=== PATIENT | female | born 2000 | race Two or more races ===

== ENCOUNTER 2020-06-20 16:06 | Emergency (ER) | payer MEDICAID ==
[~2020-06-20] VITALS: Ht 170.2 cm; Wt 81.8 kg
[2020-06-20] MEDS ORDERED: IV NORMAL SALINE 1000ML BAG 1,000 ML IV SCH (16:30)
[2020-06-20] MEDS ORDERED: ASPIRIN CHEWABLE 81 MG TABLET. PO ONE (16:30)
--- NOTE | 2020-06-20 16:31 | PHYS DOC ---
General Adult EDM: Chief Complaint: CHEST PAIN HPI: HPI: Patient is a 20 year old female who presents with for the last 3 weeks she has had this left sided chest pain that radiates into the left arm and at times into the back that is intermittent. She states she has been seen for it before but was not diagnosed with anything. She states she also has palpitations. She states that the pain feels like a " squeezing" type feeling that cause her to have some shortness of air when it is happening. She states she could just be sitting there and the pain begins. She states that nothing makes it worse or better. She states that this morning about 6:40 AM she took 3 ibuprofens withou t relief. She states that she is rating her discomfort an 8 out of 10 at this time. Patient denies abdominal pain, nausea, vomiting, diarrhea, dizziness, syncope, headache, vision changes, focal weakness, diarrhea, recent illness, fever, injury or heavy lifting. Pain is not reproducible with movement or palpation. She denies a past medical history. She denies smoking, drug use or alcohol use. Review of Systems: Review of Systems: Constitutional: Denies fever or chills. [] Eyes: Denies change in visual acuity. [] HENT: Denies nasal congestion or sore throat. [] Respiratory: Denies cough or shortness of breath. [] Cardiovascular: + chest pain, + palpitations, denies edema. [] GI: Denies abdominal pain, nausea, vomiting, bloody stools or diarrhea. [] : Denies dysuria. [] Musculoskeletal: +Intermittent radiation of chest pain to back pain. Denies joint pain. + Left arm squeezing pain [] Integument: Denies rash. [] Neurologic: Denies headache, focal weakness or sensory changes. [] Endocrine: Denies polyuria or polydipsia. [] Lymphatic: Denies swollen glands. [] Psychiatric: Denies depression or anxiety. [] Heart Score: HEART Score for Chest Pain: HEART Score for Chest Pain Response (Comments) Value History Slighlty/Non-Suspicious 0 ECG Normal 0 Age < 45 0 Risk Factors No Risk Factors 0 Troponin < Normal Limit 0 Total 0 Risk Factors: Risk Factors: DM, Current or recent (<one month) smoker, HTN, HLP, family history of CAD, obesity. Risk Scores: Score 0 - 3: 2.5% MACE over next 6 weeks - Discharge Home Score 4 - 6: 20.3% MACE over next 6 weeks - Admit for Clinical Observation Score 7 - 10: 72.7% MACE over next 6 weeks - Early Invasive Strategies Physical Exam: PE: Constitutional: Well developed, well nourished, no acute distress, non-toxic appearance. [] HENT: Normocephalic, atraumatic, bilateral external ears normal, oropharynx moist, no oral exudates, nose normal. [] Eyes: PERRLA, EOMI, conjunctiva normal, no discharge. [] Neck: Normal range of motion, no tenderness, supple, no stridor. [] Cardiovascular:Heart rate regular rhythm, no murmur [] Lungs & Thorax: Bilateral breath sounds clear to auscultation [] Abdomen: Bowel sounds normal, soft, no tenderness, no masses, no pulsatile masses. [] Skin: Warm, dry, no erythema, no rash. [] Back: No tenderness, no CVA tenderness. [] Extremities: No tenderness, no cyanosis, no clubbing, ROM intact, no edema. [] Neurologic: Alert and oriented X 3, normal motor function, normal sensory func tion, no focal deficits noted. [] Psychologic: Affect normal, judgement normal, mood normal. Normal physical exam [] EKG: EK and read by Dr. Lentz was normal sinus rhythm and no STEMI. Radiology/Procedures: Radiology/Procedures: [] Impression: [facility] [address] [place], [place] [id number] IMAGING REPORT Signed PATIENT: ROCKY GAUTHIER AACCOUNT: [id number] : 2000 LOCATION: ER AGE: 20 SEX: F EXAM STATUS: REG ER ORD. PHYSICIAN: LILLIAM KEYES APRN REASON: chest pain, palpitations, soa PROCEDURE: PORTABLE CHEST 1V INDICATION: Reason: chest pain, palpitations, soa / Spl. Instructions: / History: COMPARISON: None. FINDINGS: Single view of chest obtained. No focal airspace consolidation. Cardiomediastinal contour unremarkable. No acute osseous abnormality. IMPRESSION: * No focal airspace consolidation or edema. Electronically signed by: Lukasz Angeles MD (06/20/2020 5:59 PM) [id number] DICTATED and SIGNED BY: LUKASZ ANGELES MD DATE: 06/20/20 [id number] 0 Course & Med Decision Making: Course & Med Decision Making Pertinent Labs and Imaging studies reviewed. (See chart for details) See HPI. Alert and oriented x4. Ambulatory with steady gait. Speaks in full complete sentences. Skin pink warm and dry. No extremity edema. No tenderness or pain with palpation over the chest or the abdomen and pelvis. Abdomen is soft. Lungs are clear to auscultation all lobes. Vital signs within normal limits. EKG shows normal sinus rhythm. Well's Score 0. PERC negative. D-dimer normal. Blood work unremarkable. Chest xray normal. Patient is referred to a Manifest Clerk for follow up care. I have discussed this patient and care plan with Dr Lentz. [] Uriel Disclaimer: Uriel Disclaimer: This electronic medical record was generated, in whole or in part, using a voice recognition dictation system. Departure Departure Impression: Primary Impression: Chest pain Qualified Codes: R07.9 - Chest pain, unspecified Additional Impressions: Palpitations Arm pain, left Disposition: 01 DC HOME SELF CARE/HOMELESS Condition: STABLE Referrals: MAR PLATT MD Patient Instructions: Chest Pain (Nonspecific), Palpitations, [id number] Additional Instructions: Follow up with a senior planner I have referred you too. Take Ibuprofen for your pain. If you begin having severe shortness of air return to the ED. Scripts Ibuprofen (IBUPROFEN) 600 Mg Tablet 600 MG PO PRN Q6HRS PRN for INFLAMMATION, #20 TAB Prov: LILLIAM KEYES TOP FORMER 06/20/20 Methylprednisolone (MEDROL) 4 Mg Tab.ds.pk 1 PKG PO UD, #1 PKG Prov: LILLIAM KEYES TOP FORMER 06/20/20 LILLIAM KEYES TOP FORMER Jun 20, 2020 16:31
[2020-06-20 16:58] LABS: PROTHROMBIN TIME PATIENT 13.7 SEC (11.7-14.0)
[2020-06-20 16:59] LABS: CREATININE 0.7 mg/dL (0.6-1.0); GFR 104.6; POTASSIUM 3.5 mmol/L (3.5-5.1)
[2020-06-20 17:01] LABS: D-DIMER < 0.27 ug/mlFEU (0.00-0.50)
--- NOTE | 2020-06-20 17:03 | EKG ---
[facility] [address] [place] [address] Test Date: 2020-06-20 Test Time: 16:19:05 Pat Name: ROCKY GAUTHIER Department: Room: Gender: F [employer] [place]: : 2000 Requested By: LILLIAM KEYES Order Number: [id number] Reading MD: Measurements Intervals [place] Rate: 85 P: 47 TX: 154 QRS: 38 QRSD: 88 T: 58 QT: 348 QTc: 414 Interpretive Statements SINUS RHYTHM NORMAL ECG RI6.02 No previous ECG available for comparison
[2020-06-20 17:05] LABS: ALBUMIN 3.8 g/dL (3.4-5.0); ALBUMIN/GLOBULIN RATIO 0.9 (1.0-1.7); TOTAL BILIRUBIN 0.2 mg/dL (0.2-1.0); TOTAL PROTEIN 7.9 g/dL (6.4-8.2)
[2020-06-20 17:12] LABS: BASO # 0.1 x10^3/uL (0.0-0.2); BASO % 1 % (0-3); EOS # 0.1 x10^3/uL (0.0-0.7); EOS % 2 % (0-3); HEMATOCRIT 37.5 % (36.0-47.0); HEMOGLOBIN 12.4 g/dL (12.0-15.5); LYMPH # 3.1 x10^3/uL (1.0-4.8); LYMPH % 45 % (24-48); MEAN CORPUSCULAR HEMOGLOBIN 27 pg (25-35); MEAN CORPUSCULAR HGB CONC 33 g/dL (31-37); MEAN CORPUSCULAR VOLUME 82 fL (79-100); MONO # 0.5 x10^3/uL (0.0-1.1); MONO % 8 % (0-9); NEUT % 45 % (31-73); PLATELET COUNT 282 x10^3/uL (140-400); RED BLOOD COUNT 4.58 x10^6/uL (3.50-5.40); RED CELL DISTRIBUTION WIDTH 14.5 % (11.5-14.5); WHITE BLOOD COUNT 6.8 x10^3/uL (4.0-11.0)
[2020-06-20 17:14] LABS: BILIRUBIN,URINE NEGATIVE (NEG); CLARITY,URINE CLEAR; COLOR,URINE YELLOW; NITRITE,URINE NEGATIVE (NEG); PH,URINE 6.5 (<5.0-8.0); PROTEIN,URINE NEGATIVE (NEG-TRACE)
[2020-06-20 17:22] LABS: BACTERIA,URINE FEW /HPF (0-FEW)
[2020-06-20 17:23] LABS: BARBITURATES NEG (NEG); BENZODIAZEPINES NEG (NEG); CANNABINOIDS NEG (NEG); COCAINE NEG (NEG); METHADONE NEG (NEG); OPIATES NEG (NEG); PHENCYCLIDINE NEG (NEG)
[2020-06-20 17:28] LABS: AMPHETAMINE/METHAMPHETAMINE NEG (NEG)
--- NOTE | 2020-06-20 18:01 | RAD ---
INDICATION: Reason: chest pain, palpitations, soa / Spl. Instructions: / History: COMPARISON: None. FINDINGS: Single view of chest obtained. No focal airspace consolidation. Cardiomediastinal contour unremarkable. No acute osseous abnormality. IMPRESSION: * No focal airspace consolidation or edema. Electronically signed by: Richard Deutsch MD (06/20/2020 5:59 PM) [id number]
[2020-06-20] MEDS ORDERED: IBUP-1007 PO (18:08)
[2020-06-20] MEDS ORDERED: METH4TAB2 PO (18:08)
[2020-06-20 18:40] VITALS: BP 104/62
== END 2020-06-20 18:45 | disposition home or self-care (01) ==
LOC: ER 16:06
DX: R07.89 Other chest pain (principal); R00.2 Palpitations; M79.602 Pain in left arm
CPT/HCPCS: 36415; 71045; 80053; 80307; 81001; 81025; 83690; 83735; 83880; 84443; 84484; 85025; 85379; 85610; 87086; 93005; 96360; 99285; J7030

== ENCOUNTER 2020-08-27 20:13 | Emergency (ER) | payer MEDICAID ==
[~2020-08-27] VITALS: Ht 170.2 cm; Wt 90.0 kg
[~2020-08-27 20:13] MED LIST: ASPI325T8 PO; CETI10TA74 PO; CHOL5000 PO; CITA20TA9 PO; CLOP75TA PO; IBUP-1007 PO; IBUP-1027 PO; MECL12.582 PO; METH4TAB2 PO; POLY17PO52 PO
[2020-08-27] MEDS ORDERED: IV NORMAL SALINE 1000ML BAG 1,000 ML IV ONE (20:45)
[2020-08-27] MEDS ORDERED: diphenhydrAMINE 50 MG/ML VIAL IVP ONE ×2 (21:00→23:00)
[2020-08-27] MEDS ORDERED: methylPREDNISolone SOD SUCC PF 125 MG/2 ML VIAL. IV ONE (21:00)
[2020-08-27] MEDS ORDERED: FAMOTIDINE 20 MG/2 ML VIAL IVP ONE (21:00)
[2020-08-27] MEDS ORDERED: EPINEPHrine 1 MG/ML VIAL IM ONE (23:00)
--- NOTE | 2020-08-27 23:09 | PHYS DOC ---
Past Medical History Past Medical History: Asthma, CVA, Depression Additional Past Medical Histor: COVID Past Surgical History: No Surgical History Smoking Status: Former Smoker Alcohol Use: None General Adult EDM: Chief Complaint: ALLERGIC REACTION HPI: HPI: Patient is a 20 year old female present to ER due to right upper lip swelling, right hand itchy. Symptoms started a few hours ago while she was at work. Patient had the same problem last month. She had not seen an allergy doctor yet. Patient denies any new medication, not sure what happened. Patient denies any trouble swallowing, denies any tongue swelling, denies any trouble breathing. Patient states she is feels itching all over now. Patient denies any chest pain, no headache, no nausea vomiting. Review of Systems: Review of Systems: Constitutional: Denies fever or chills. [] Eyes: Denies change in visual acuity. [] HENT: Denies nasal congestion or sore throat. Positive upper lip swelling, right upper corner. Respiratory: Denies cough or shortness of breath. [] Cardiovascular: Denies chest pain or edema. [] GI: Denies abdominal pain, nausea, vomiting, bloody stools or diarrhea. [] : Denies dysuria. [] Musculoskeletal: Denies back pain or joint pain. [] Integument: Positive for itching Neurologic: Denies headache, focal weakness or sensory changes. [] Endocrine: Denies polyuria or polydipsia. [] Lymphatic: Denies swollen glands. [] Psychiatric: Denies depression or anxiety. [] Heart Score: C/O Chest Pain: N/A Risk Factors: Risk Factors: DM, Current or recent (<one month) smoker, HTN, HLP, family hi story of CAD, obesity. Risk Scores: Score 0 - 3: 2.5% MACE over next 6 weeks - Discharge Home Score 4 - 6: 20.3% MACE over next 6 weeks - Admit for Clinical Observation Score 7 - 10: 72.7% MACE over next 6 weeks - Early Invasive Strategies Current Medications: Current Medications Medications (Trade) Dose Ordered Sig/Leila Start Time Stop Time Status Last Admin Dose Admin Diphenhydramine HCl (Benadryl) 25 mg 1X ONCE 08/27/20 23:00 08/27/20 23:01 DC Epinephrine HCl (Adrenalin) 0.3 mg 1X ONCE 08/27/20 23:00 5/3/21 23:01 DC Famotidine (Pepcid Vial) 20 mg 1X ONCE 08/27/20 21:00 08/27/20 21:01 DC 08/27/20 20:45 20 MG Methylprednisolone Sodium Succinate (SOLU-Medrol 125MG VIAL) 125 mg 1X ONCE 08/27/20 21:00 08/27/20 21:01 DC 08/27/20 20:43 125 MG Sodium Chloride 1,000 ml @ 1,000 mls/hr 1X ONCE 08/27/20 20:45 08/27/20 21:44 DC 08/27/20 20:41 1,000 MLS/HR Allergies: Allergies: Allergies Coded Allergies Type Severity Reaction Last Updated Verified No Known Drug Allergies 06/20/20 No Physical Exam: PE: Constitutional: Well developed, well nourished, no acute distress, non-toxic appearance. [] HENT: Normocephalic, atraumatic, bilateral external ears normal, oropharynx moist, no oral exudates, nose normal. Right upper lip swelling, no tongue swelling, no throat swelling. Patient can open and close her mouth without any problem, no pooling of saliva. Eyes: PERRLA, EOMI, conjunctiva normal, no discharge. [] Neck: Normal range of motion, no tenderness, supple, no stridor. [] Cardiovascular:Heart rate regular rhythm, no murmur [] Lungs & Thorax: Bilateral breath sounds clear to auscultation [] Abdomen: Bowel sounds normal, soft, no tenderness, no masses, no pulsatile m asses. [] Skin: Warm, dry, no erythema, small patch of macular rash on neck and trunk. Back: No tenderness, no CVA tenderness. [] Extremities: No tenderness, no cyanosis, no clubbing, ROM intact, no edema. [] Neurologic: Alert and oriented X 3, normal motor function, normal sensory function, no focal deficits noted. [] Psychologic: Affect normal, judgement normal, mood normal. [] Current Patient Data: Vital Signs: Vital Signs Date Time Temp Pulse Resp B/P (MAP) Pulse Ox O2 Delivery O2 Flow Rate FiO2 08/27/20 22:30 58 18 100/54 (69) 96 Room Air 08/27/20 20:20 98.7 98.7 EKG: EKG: [] Radiology/Procedures: Radiology/Procedures: [] Course & Med Decision Making: Course & Med Decision Making Pertinent Labs and Imaging studies reviewed. (See chart for details) Patient is a 20-year-old female who presented to ER due to allergic reaction something she came to contact at work. Patient was given medication in the ER, she feel much better, she still has some swelling in her right upper lip area, no airway obstruction. Patient was discharged home in stable condition. Patient was instructed to follow-up with an allergy doctor for outpatient evaluation and treatment. Patient is amenable to plan of care. Dragon Disclaimer: [employer] Disclaimer: This electronic medical record was generated, in whole or in part, using a voice recognition dictation system. Departure Departure Impression: Primary Impression: Angio-edema Disposition: 01 HOME / SELF CARE / HOMELESS Condition: IMPROVED Referrals: NO PCP (PCP) Please call [facility]: [facility] [address] [place] [address] [address] [place], [place] [phone] Fax Follow up in 2 days. Patient Instructions: Angioedema Additional Instructions: You were seen for a possible allergic reaction. You should take the entire course of steroids as prescribed. You need to follow up in the allergy or medicine clinic for further evaluation. It is unclear what caused your reaction. If you start to have shortness of breath, facial swelling, tongue swelling, difficulty swallowing, or any other concerning symptoms you should take your epipen and call 911 to return to the ED. Scripts Epinephrine (EPIPEN 2-SHINE) 0.3 Mg/0.3 Ml Auto.injct 1 SYR IM ONCE PRN for tongue swelling for 1 Day, #1 PACKET 0 Refills Prov: DIONTE GILBERT DO 08/28/20 Hydroxyzine Hcl (HYDROXYZINE HCL) 25 Mg Tablet 1 TAB PO Q6HRS PRN for ITCHING, #30 TAB Prov: DIONTE GILBERT DO 08/28/20 Famotidine (PEPCID) 20 Mg Tablet 20 MG PO HS for 7 Days, #7 TAB Prov: DIONTE GILBERT DO 08/28/20 Prednisone (PREDNISONE) 20 Mg Tablet 1 TAB PO DAILY for 7 Days, #7 TAB Prov: DIONTE GILBERT DO 08/28/20 DIONTE GILBERT DO August 27, 2020 23:09
[2020-08-28] MEDS ORDERED: FAMO-63 PO (01:07)
[2020-08-28] MEDS ORDERED: PRED20TA PO (01:07)
[2020-08-28] MEDS ORDERED: EPIPEN 2-P0.3 MG/0.3 IM (01:07)
[2020-08-28] MEDS ORDERED: HYDR25TA PO (01:07)
[2020-08-28 01:31] VITALS: BP 101/59
== END 2020-08-28 01:38 | disposition home or self-care (01) ==
LOC: ER 20:13
DX: T78.3XXA Angioneurotic edema, initial encounter (principal); J45.909 Unspecified asthma, uncomplicated; F32.9 Major depressive disorder, single episode, unspecified; Z86.73 Personal history of transient ischemic attack (TIA), and cerebral infarction without residual deficits; Z87.891 Personal history of nicotine dependence
CPT/HCPCS: 96361; 96372; 96374; 96375; 99285; J0171; J1200; J2930; J3490; J7030

== ENCOUNTER → 2021-02-07 | Outpatient (CLI) | payer MEDICAID ==
[~2021-02-07] MED LIST changes: +EPIPEN 2-P0.3 MG/0.3 IM; +FAMO-63 PO; +HYDR25TA PO; +PRED20TA PO
--- NOTE | 2021-02-07 16:56 | CARD ---
MR#: [id number] Date of Study: 02/07/2021 Ordering Physician: MAR MARIN, Referring Physician: MAR MARIN, Tech: Megan Greer [facility] APPROVED REPORT EXAM: Two-dimensional and M-mode echocardiogram with Doppler and color Doppler. Other Information Quality : GoodHR: 67bpm INDICATION Patent Foramen Ovale 2D DIMENSIONS RVDd2.4 (2.9-3.5cm)Left Atrium(2D)3.3 (1.6-4.0cm) IVSd0.9 (0.7-1.1cm)Aortic Root(2D)2.9 (2.0-3.7cm) LVDd4.4 (3.9-5.9cm)LVOT Diameter2.0 (1.8-2.4cm) PWd1.0 (0.7-1.1cm)LVDs2.9 (2.5-4.0cm) FS (%) 35.0 %SV56.7 ml LVEF(%)64.6 (>50%) Aortic Valve AoV Peak Danny.117.9cm/sAoV VTI25.5cm AO Peak GR.5.6mmHgLVOT Peak Danny.106.8cm/s AO Mean GR.3mmHgAVA (VMAX)2.99cm2 Mitral Valve MV E Hwulgmro27.9cm/sMV DECEL DLFZ033kd MV A Xnxodknt47.8cm/sE/A Ratio1.7 Pulmonary Valve PV Peak Julrfgxa56.1cm/s Tricuspid Valve TR P. Ywwtbfuq355nb/sRAP DABLLQQG4udGb TR Peak Gr.85xiRaWYIS39ahVf Pulmonary Vein S1 Jzduhxnf42.8cm/sD2 Cmnlalxq10.9cm/s PVa [id number] LEFT VENTRICLE The left ventricle is normal size. There is normal left ventricular wall thickness. The left ventricu lar systolic function is normal. The Ejection Fraction is 55-60%. There is normal LV segmental wall m otion. The left ventricular diastolic function and filling is normal for age. RIGHT VENTRICLE The right ventricle is normal size. There is normal right ventricular wall thickness. The right ventr icular systolic function is normal. ATRIA The left atrium size is normal. The right atrium size is normal. The interatrial septum is intact wit h no evidence for an atrial septal defect or patent foramen ovale as noted on 2-D or Doppler imaging. AORTIC VALVE The aortic valve is normal in structure and function. Doppler and Color Flow revealed no significant aortic regurgitation. There is no significant aortic valvular stenosis. Calculated aortic valve area is 3.0 cm2 with maximum pressure gradient of 6 mmHg and mean pressure gradient of 3 mmHg. MITRAL VALVE The mitral valve is normal in structure and function. There is no evidence of mitral valve prolapse. There is no mitral valve stenosis. Doppler and Color-flow revealed trace mitral regurgitation. TRICUSPID VALVE The tricuspid valve is normal in structure and function. Doppler and Color Flow revealed trace tricus pid regurgitation with an estimated PAP of 29 mmHg. There is no tricuspid valve stenosis. PULMONIC VALVE The pulmonary valve is normal in structure and function. Doppler and Color Flow revealed trace pulmon ic valvular regurgitation. GREAT VESSELS The aortic root is normal in size. The ascending aorta is normal in size. The IVC is normal in size a nd collapses >50% with inspiration. PERICARDIAL EFFUSION There is no evidence of significant pericardial effusion. Critical Notification Critical Value: No <Conclusion> The left ventricular systolic function is normal. The Ejection Fraction is 55-60%. There is normal LV segmental wall motion. Amplatzer PFO occluder well seated. Bubble study negative. Trace mitral regurgitation. Trace tricuspid regurgitation with an estimated PAP of 29 mmHg. There is no evidence of significant pericardial effusion. Signed by : Mar Marin, Electronically Approved : 02/07/2021 16:56:08
== END ==
LOC: ECHO 14:58
PROVIDERS: ATTEND Internal Medicine Cardiovascular Disease
DX: Q21.1 Atrial septal defect (principal)
CPT/HCPCS: 93306; C8929